=== PATIENT | female | born 1980 | race American Indian/Alaskan Native ===

== ENCOUNTER 2019-09-10 07:24 | Day surgery (SDC) | payer MEDICAID, OTHER ==
[2019-09-04 14:05] LABS: Mean Corpuscular HGB Conc 30 % (30-34); Platelet Count 462 K/mm3 (140-440); Red Blood Count 4.26 M/mm3 (3.65-5.03); Red Cell Distribution Width 19.8 % (13.2-15.2)
[2019-09-04 14:07] LABS: Hematocrit 28.3 % (30.3-42.9); Hemoglobin 8.4 gm/dl (10.1-14.3); Mean Corpuscular Volume 66 fl (79-97)
[2019-09-10] MEDS ORDERED: ZOFRAN IV PRN (07:36)
[2019-09-10] MEDS ORDERED: SUBLIMAZE IV PRN (07:36)
--- NOTE | 2019-09-10 07:37 | Anesthesia Day of Surgery ---
Anesthesia Day of Surgery - Day of Surgery Patient Examined: Yes Patient H&P Reviewed: Yes Patient is NPO: Yes
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
[2019-09-10] MEDS ORDERED: TYLENOL PO NR (07:43)
--- NOTE | 2019-09-10 07:43 | Short Stay Summary ---
Short Stay Documentation Date of service: 09/10/19 Narrative H&P: 39y/o with dysfunctional uterine bleeding. The patient underwent an endometrial biopsy with negative findings. She attempted medical management without improvement in her symptoms. - History Principal diagnosis: Dysfunctional uterine bleeding Past Medical History: No medical history Past Surgical History: Other (tubal ligation) Social history: single - Allergies and Medications Current Medications: Allergies Penicillins Allergy (Verified 09/02/19 14:49) Rash Home Medications Medication Instructions Recorded Confirmed Last Taken Type Gabapentin [Neurontin] 300 mg PO BID 09/02/19 09/02/19 Unknown History Naproxen [Naprosyn] 375 mg PO BID PRN 09/02/19 09/02/19 Unknown History Active Medications Fentanyl (Sublimaze) 50 mcg IV Q5MIN PRN PRN Reason: Pain , Severe (7-10) Lactated Ringer's (Lactated Ringers) 1,000 mls @ 125 mls/hr IV DIRECT HIEU Ondansetron HCl (Zofran) 4 mg IV ONCE PRN PRN Reason: Nausea And Vomiting - Physical exam General appearance: no acute distress Integumentary: no rash HEENT: Atraumatic Lungs: Clear to auscultation Breasts: deferred Heart: Regular rate Gastrointestinal: normal Female Genitourinary: deferred Rectal Exam: deferred Extremities: no ischemia Neurological: Normal gait - Brief post op/procedure progress note Date of procedure: 09/10/19 Pre-op diagnosis: dysfunctional uterine bleeding Post-op diagnosis: other (submucosal Leiomyoma) Procedure: Hysteroscopy Fibroid extraction with Myosure Endometrial ablation with NovaSure Anesthesia: GETA Surgeon: JIA MURRAY Estimated blood loss: minimal Pathology: list (Leiomyoma) Specimen disposition: to lab Condition: stable - Hospital course Hospital course: The patient was admitted the day of surgery underwent a fibroid removal and endometrial ablation. Please see operative note for details of surgery. Postoperative course was uneventful. - Disposition Condition at discharge: Good Disposition: DC- TO HOME OR SELFCARE Short Stay Discharge Plan Activity: other (rest for 1 week) Diet: regular Additional Instructions: Scheduled follow-up with Dr. Murray in 2-4 weeks Prescriptions: Ibuprofen [Motrin] 800 mg PO Q8HR PRN #60 tablet PRN Reason: Pain, Mild (1-3) HYDROcodone/APAP 5-325 [[place] 5/325] 1 each PO Q6HR PRN #20 tablet PRN Reason: Pain
[2019-09-10] MEDS ORDERED: NACL BACTERIOSTATIC INFILTRATI ONE (07:52)
[2019-09-10] MEDS ORDERED: VERSED IV NR (08:00)
[2019-09-10] MEDS ORDERED: GABAPENTIN PO NR (08:00)
[2019-09-10] MEDS ORDERED: LACTATED RINGERS 1,000 ML IV SCH (08:00)
[2019-09-10] MEDS ORDERED: SILVER NITRATE TP ONE ×2 (08:45→09:02)
[2019-09-10] MEDS ORDERED: VERSED ONE (08:47)
[2019-09-10] MEDS ORDERED: XYLOCAINE MPF 2% ONE (08:47)
[2019-09-10] MEDS ORDERED: SUBLIMAZE ONE (08:47)
[2019-09-10] MEDS ORDERED: DIPRIVAN 10 MG/ML IV ONE (08:47)
[2019-09-10] MEDS ORDERED: DECADRON ONE (09:20)
[2019-09-10] MEDS ORDERED: ZOFRAN ONE (09:20)
[2019-09-10] MEDS ORDERED: TORADOL ONE (09:20)
[2019-09-10] MEDS ORDERED: PHENYLEPHRINE/NS Syringe 1,000 MCG/10 ML IV ONE (09:31)
[2019-09-10] MEDS ORDERED: NACL 0.9% IR ONE (10:03)
[2019-09-10] MEDS ORDERED: LACTATED RINGERS 1,000 ML ONE (10:07)
--- NOTE | 2019-09-10 10:10 | Operative Report ---
Operative Report Operative Report: Date of procedure: 09/10/2019 Pre-operative diagnosis: Dysfunctional uterine bleeding Post-operative diagnosis: Same as above; Submucosal leiomyoma Procedure name(s): Hysteroscopy; fibroid extraction with Myosure; endometrial ablation via NovaSure Surgeon: Venus Castillo M.D. Portable Irrigation Operator: None Anesthesia: Gen. endotracheal anesthesia Findings submucosal leiomyoma on the anterior aspect of the endometrial cavity Pathology: Leiomyoma Indication: 39-year-old with a history dysfunctional uterine bleeding and anemia secondary to menorrhagia. The patient has failed medical management and elected to undergo surgical management of her symptoms. Procedure The patient was taken to the operating room and given general tracheal anesthesia without complication. The patient was prepped and draped in a normal sterile fashion. A bivalve speculum was placed in the patient's vagina single- tooth tenaculums placed on the anterior lip of the cervix. The cervical os was dilated with graduated dilators. A uterine sound was inserted. The hysteroscope was then placed. Insufflation of the uterine cavity was performed with normal saline. Gen. survey of the uterine cavity revealed anterior submucosal myoma impinging on the endometrial cavity. The Myosure device was then inserted with extraction of the submucosal leiomyoma.The hysteroscope was then removed. The NovaSure device was then inserted. The endometrial length was 5.5 cm and the uterine width was 0.5 cm. The device was engaged and it passed the surveillance of the uterine cavity. The NovaSure device was then deployed with a energy of 136 W that lasted for 1 minute 16 seconds. The NovaSure device was then removed. The hysteroscope was again reinserted. There was evidence of charring of the endometrial surface. The remainder of the vaginal instruments were then removed atraumatically. The patient was then successfully extubated taken to the recovery room. All sponge laps and needle counts were correct 2.
[2019-09-10 11:00] VITALS: BP 120/77
--- NOTE | 2019-09-10 18:38 | Post Anesthesia Evaluation ---
- Post Anesthesia Evaluation Patient Participated: Yes Airway Patent: Yes Stable Respiratory Function: Yes Nausea/Vomiting: No Temp > 96.8F: Yes Pain Manageable: Yes Adequeate Hydration: Yes Anesthesia Complications: No
== END 2019-09-10 11:50 | disposition home or self-care (01) ==
LOC: OR 07:24
PROVIDERS: ATTEND Obstetrics & Gynecology
DX: N93.8 Other specified abnormal uterine and vaginal bleeding (principal); G43.909 Migraine, unspecified, not intractable, without status migrainosus; Z79.899 Other long term (current) drug therapy; Z88.0 Allergy status to penicillin; Z98.891 History of uterine scar from previous surgery; Z72.89 Other problems related to lifestyle; Z98.890 Other specified postprocedural states; Z85.89 Personal history of malignant neoplasm of other organs and systems; Z86.2 Personal history of diseases of the blood and blood-forming organs and certain disorders involving the immune mechanism
CPT/HCPCS: 36415; 58563; 84703; 85027; 88305; A4217; J1100; J1885; J2250; J2370; J2405; J2704; J3010; J7120